=== PATIENT | male | born 1965 | race Caucasian/White ===

== ENCOUNTER → 2019-01-06 | Outpatient (CLI) | payer OTHER ==
[~2019-01-06] MED LIST: FLOM0.4C39 PO; LIDOCAINE 1% MDV 20ML VIAL As Ordered ONE; LISI-538 PO; MIDAZOLAM INJ 2 MG/2 ML VIAL (J2250) As Ordered ONE; ONDA8TAB7 PO; PROC10TA4 PO; ceFAZolin 1GM INJ (J0690 PER 500MG) As Ordered ONE; diphenhydrAMINE INJ 50MG/ML VIAL (J1200) As Ordered ONE; fentaNYL 100 MCG/2 ML INJECTION (J3010) As Ordered ONE
--- NOTE | 2019-01-06 13:38 | POST-OPPD ---
Postoperative Procedure Note Date Of Procedure: Jan 06, 2019 Time Of Procedure: 13:35 PREOPERATIVE DIAGNOSIS: rectal ca POSTOPERATIVE DIAGNOSIS: rectal ca FINDINGS: normal right IJ PROCEDURE: right side sport SURGEON: maya ANESTHESIA: moderate sedation ESTIMATED BLOOD LOSS: < 5 ml COMPLICATIONS: none POSTOPERATIVE CONDITION: stable ALEXANDRIA PEREZ MD Jan 06, 2019 13:38
--- NOTE | 2019-01-06 13:44 | REP ---
IR Ultrasound and fluoroscopy-guided port placement. IR Ultrasound of the neck. IR Moderate sedation. Clinical information: Rectal cancer. Physician: Dr. Villegas. Procedure: The patient was advised of the benefits, risks, and alternatives of the procedure and informed consent was obtained. A time-out was performed with verification of the patient's name, MRN, site of procedure and type of procedure to be performed. The patient was positioned in the supine position on the angiographic table. The site was prepped and draped in the usual sterile fashion. Moderate sedation was performed by the physician including the presence of an independent trained observer who assisted and monitored the patient's level of consciousness and physiologic status. Following the administration of fentanyl and versed, the physician spent 45 minutes of continuous face to face time with the patient. Ultrasound of the neck reveals a patent and compressible right internal jugular vein. A csw radiograph reveals no gross abnormality. The neck and anterior chest wall were anesthetized with lidocaine. The right internal jugular vein was accessed using a microintroducer needle by a lateral approach. An 018 wire was advanced into the superior vena cava, the needle was removed and a microsheath was placed. An Amplatz wire was then passed into the inferior vena cava. An incision at the internal jugular vein access site and anterior chest wall were made using a scalpel. An incision was made at the anterior chest wall. A small pocket was created using a combination of blunt and sharp dissection. A tunneling device was then used to pass the catheter from the pocket to the neck puncture site. An 8-Sw[employer] smart power port was then positioned in the pocket. The catheter was then measured and cut. The introducer sheath was exchanged for a peel-away sheath. The catheter was passed through the peel-away sheath into the internal jugular vein and the peel-away sheath was removed. The port tip was positioned at the cavo atrial junction. The port was then accessed with a Jorgensen needle. The port flushes and aspirates well. The puncture site in the neck was closed. The chest wall incision was then closed with 2-0 Vicryl and 4-0 Monocryl. Glue and Steri-Strips were applied. A sterile dressing was then applied. The patient tolerated the procedure well and was returned to the PRU in stable condition. Estimated blood loss: <5 ml. Complications: None. Conclusion: 1. Successful placement of an 8-Sw[employer] smart power port via the right internal jugular vein. The port is ready for immediate use. 2. Patient to follow up in IR clinic in 2 weeks. Thank you for this referral. Electronically Signed by Daniela Villegas MD 01/06/2019 01:43 P
[2019-01-06 15:43] VITALS: BP 117/63
== END ==
LOC: M IRPRO 11:40
PROVIDERS: ATTEND Internal Medicine Medical Oncology
DX: C20 Malignant neoplasm of rectum (principal)
CPT/HCPCS: 36571; 99152; 99153; C1769; C1788; C1894; J0690; J1200; J2250; J3010

== ENCOUNTER → 2019-06-02 | Outpatient (CLI) | payer OTHER ==
[~2019-06-02] MED LIST changes: +ALL10TAB2 PO; +B-12100021 PO; +ESSETAB4 PO; -LIDOCAINE 1% MDV 20ML VIAL As Ordered ONE; +LOMO2.5T PO; -MIDAZOLAM INJ 2 MG/2 ML VIAL (J2250) As Ordered ONE; +NAPR220C23 PO; +ONDA8TAB10 PO; -ONDA8TAB7 PO; -ceFAZolin 1GM INJ (J0690 PER 500MG) As Ordered ONE; -diphenhydrAMINE INJ 50MG/ML VIAL (J1200) As Ordered ONE; -fentaNYL 100 MCG/2 ML INJECTION (J3010) As Ordered ONE
--- NOTE | 2019-06-03 08:23 | RADONC ---
RADIATION ONCOLOGY CONSULTATION NOTE DATE: 06/02/2019 CHART NUMBER: [id number] DIAGNOSIS: Rectal cancer. STAGE: IIIB, T2, N2a, M0. ECOG PERFORMANCE STATUS: 0 CONSULTATION NOTE Mr. Tejada is a 53-year-old white male with the diagnosis of what appears to be a stage IIIB, [id number] moderately differentiated adenocarcinoma of the rectum who is presenting to us today status post low anterior resection and adjuvant chemotherapy consisting of FOLFOX for discussion of postoperative radiation therapy in attempt to increase the likelihood of local control. HISTORY OF PRESENT ILLNESS: The patient was in his usual state of health until spring when he began developing some rectal bleeding. A colonoscopy was undertaken on 08/24/2018 and the patient was found to have a low rectal mass. Biopsy was undertaken and pathology revealed a moderately differentiated adenocarcinoma. The patient underwent an MRI of the abdomen and pelvis which showed a 6 cm long mid and low rectal carcinoma. The tumor extended from the retroperitoneal reflection down to the top of the anal sphincter. There was no sphincter involvement. There was no evidence of extension beyond the rectal wall. There was no evidence of lymphadenopathy. CT scans of the chest, abdomen and pelvis were done on 08/28/2018 and were negative for metastatic disease. Surgery was undertaken on 10/07/2018 consisting of low anterior resection. Pathology revealed a 2.8 cm x 2 cm x 0.5 cm moderately differentiated adenocarcinoma. The tumor invaded into the muscularis propria but not through it. A total of 29 lymph nodes were sampled, 4 of which were positive for metastatic adenocarcinoma. Of note, each of those positive nodes had tumor diffusely involving the node and invading into the perinodal fat. The margins of resection showed tumor abutting and extending to the distal inked stapled margin. However, no definitive tumor was seen in the anastomotic rings. Both of the anastomotic rings were benign and no invasive carcinoma was seen within them. However, a detached microscopic foci of tumor was seen at the edge of one of the rings near the submucosal vascular tissue. The patient was subsequently seen by his medical oncologist, Dr. Coello, and initiated systemic therapy with FOLFOX. He is now being referred to us to discuss the possibility of postoperative radiation therapy in an attempt to increase the likelihood of achieving local control in this locally advanced rectal cancer patient. PAST MEDICAL HISTORY: The patient's past medical history is positive for arthritis and hypertension. In addition, the patient had right knee surgery and left arm soft tissue surgery. He had a ventral hernia repair. ALLERGIES: The patient is allergic to PORT LIONS BASED CHEMOTHERAPY. He is also allergic to IV CONTRAST. SOCIAL HISTORY: The patient does not smoke cigarettes. He drinks alcohol socially. FAMILY HISTORY: The patient's family history is noncontributory. REVIEW OF SYSTEMS: The patient's review of systems is positive for some fatigue, energy and weakness, as well as some headaches and some diarrhea and constipation alternating. It is otherwise noncontributory. He denies nausea, vomiting, fevers, chills, night sweats, diplopia, anorexia or weight loss, bone pain, urinary problems or neurological issues. PHYSICAL EXAMINATION: The patient is a well-developed, well-nourished male in no acute distress. HEENT exam is normocephalic, atraumatic. Extraocular movements are intact. There is no palpable cervical, supraclavicular, infraclavicular, axillary, or inguinal lymphadenopathy present. Lungs are clear to auscultation and percussion. Heart has a regular rate and rhythm. Abdomen is benign with no hepatosplenomegaly, masses, or tenderness. Rectal examination was deferred. Skeletal examination reveals no tenderness to pressure or percussion of the bony skeleton. Extremities reveal no clubbing, cyanosis, or edema. Neurologic exam is grossly intact as is the remainder of the physical examination. ASSESSMENT: I had a very lengthy discussion with this patient. We went into detail with not only the NCCN guidelines for his stage IIIB locally advanced rectal cancer, but I also xeroxed a portion of the chapter on postoperative radiation therapy discussing the local control rates and cure rates out of the textbook [employer]ad[employer]. We discussed the statistics of local control with radiation versus without. We discussed the statistics of overall survival with radiation and without. Within the portion of the chapter I copied for him, there were statistics from multiple cancer centers and clinical trials. In addition, I made the patient a copy of his path report and went through each line [id number] describing the risks of recurrence caused by those steps. We specifically spoke of the positive lymph nodes with extranodal extension bursting into the perirectal fat. We also spoke of the questionable margin which was read as abutting and extending to the distal inked/stable margin. We discussed the theories behind increasing risk for local recurrence. We discussed the way radiation effects tumor cells. The patient continues to be very hesitant to even consider radiation. We discussed the possibility for an outside opinion as well. I made clear to the patient that considering his locally advanced disease with these four nodes with extranodal extension into the perirectal fat as well as the questionable surgical margin approaching the inked and stapled area. I would recommend radiation. I think the studies have shown an increase in local control as well as an increase in survival for postoperative treatment for this disease. The patient appears to be leaning to observation. We discussed the fact that this is purely a preventative treatment in as much as all known disease has been resected. Indeed, I cannot give this patient a guarantee that this radiation will be absolutely necessary and that there is disease there to kill. It is of course possible that he will do just fine without any treatment. I made clear that we are dealing with statistics and odds here. I stressed that he is relatively young and in good shape and should be able to handle this radiation. I explained the difficulties of treatment should the tumor come back even if caught early. In summary, I have given the patient copies of the NCCN guidelines as well as a list of web sites, such as the National Cancer [place] and the [place] [employer] to review on his own. In addition, I have given the patient my cell phone number as well as the office number if he should have any further questions. I also gave him a portion of the chapter from one of our major textbooks, Yadira, on colorectal cancer to study for himself. I have given him a copy of this path report highlighting any issues of concern so that he can take that with him when he returns to Dr. Richey and to discuss this as well. The patient has further chemotherapy and does not have the make this decision until a few weeks from now. We are available to him should he want radiation in the future. In light of his hesitancy, however at this time to undergo radiation, I have not set him up for any followup appointments here. If he wishes radiation he will call us or we can have him referred back by his surgeon Dr. Tim Richey MD or his medical oncologist, Dr. Narda Coello MD. The patient is aware that I am recommending post operative RT. The patient is also aware that I will be off on vacation for the next 2 weeks and his decision should be made by the time I return so we could begin working on his treatment planning if he so decides. cc: MD Tim Jon MD MTDD
== END ==
LOC: M ONCR 12:38
PROVIDERS: ATTEND Radiology Radiation Oncology
DX: C20 Malignant neoplasm of rectum (principal)

== ENCOUNTER → 2019-11-15 | Outpatient (CLI) | payer OTHER ==
[~2019-11-15] MED LIST changes: +FULP6INJ SC; +GASTROGRAFIN SOLUTION 30ML (Q9963) As Ordered ONE; +ISOVUE-370 76% 100ML VIAL As Ordered ONE; +OXYC10TA12 PO; +PRED50TA PO; +WHEAOIL4 PO; +ZOFR8TAB24 PO; +diphenhydrAMINE 25MG CAP PO ONE
--- NOTE | 2019-11-15 16:55 | REP ---
Clinical: History of rectal carcinoma. Technique: Axial contrast enhanced images from the thoracic inlet to the upper abdomen coronal and sagittal re-formations (followed by CT of the abdomen and pelvis) using 100 ml Isovue 370 intravenous contrast material. Comparison: 08/28/2018. Findings: Mediastinum demonstrates normal thoracic aorta, pulmonary vasculature, and heart/pericardium. No adenopathy. No pericardial effusion. The bilateral lung graham are well-aerated, relatively symmetric and essentially clear. The no consolidation, significant nodule, or mass lesion. No pleural effusion. No pneumothorax. Tracheobronchial tree is patent. Surrounding musculoskeletal structures are intact without acute osseous abnormality. [id number] identified with tip in the SVC. Impression: No acute mediastinal or pleuroparenchymal process. Specifically, no evidence for metastatic disease. Electronically Signed by Edgard Kaba MD 11/15/2019 04:47 P
--- NOTE | 2019-11-15 17:03 | REP ---
Clinical: Rectal carcinoma. Technique: Axial contrast enhanced images from the lung bases to the pubic symphysis using oral (per protocol) and 100 ml Isovue 370 intravenous contrast material with coronal and sagittal re-formations. Delayed images of the abdomen obtained. Comparison: 08/28/2018 (presurgical outside CT). Findings: Diffuse hepatosteatosis noted without focal hepatic lesion. Spleen, pancreas, gallbladder, bilateral adrenal glands and kidneys are normal. The enteric system is without obstruction or acute inflammatory process. Evidence for prior partial rectal resection and reanastomosis. Surrounding fat stranding and small lymph nodes in the surrounding perirectal space are nonspecific. No associated fluid collection. Further evaluation of the pelvis demonstrates normal bladder and mild prostatomegaly. No ascites. No free air. No significant retroperitoneal or intraperitoneal adenopathy. Abdominal aorta and vasculature without aneurysm or dissection. Surrounding musculoskeletal structures are intact without acute osseous abnormality. Impression: 1. Evidence for prior partial rectal resection with moderate surrounding fat stranding and small lymph nodes nonspecific in appearance and without significant prior examinations for comparison. Short-term follow-up evaluation may be warranted. 2. No further acute process and no definite evidence for recurrence or metastatic disease noted. 3. Prostatomegaly. 4. Hepatosteatosis. Electronically Signed by Edgard Kaba MD 11/15/2019 04:55 P
== END ==
LOC: M RAD 14:24
PROVIDERS: ATTEND Internal Medicine Medical Oncology
DX: Z85.048 Personal history of other malignant neoplasm of rectum, rectosigmoid junction, and anus (principal); N40.0 Benign prostatic hyperplasia without lower urinary tract symptoms
CPT/HCPCS: 71260; 74177; Q9963; Q9967

== ENCOUNTER → 2020-02-15 | Outpatient (CLI) | payer OTHER ==
[~2020-02-15] MED LIST changes: -FULP6INJ SC; -GASTROGRAFIN SOLUTION 30ML (Q9963) As Ordered ONE; -ISOVUE-370 76% 100ML VIAL As Ordered ONE; -diphenhydrAMINE 25MG CAP PO ONE
--- NOTE | 2020-02-15 12:36 | REPVR ---
PROCEDURE INFORMATION: Exam: CT Abdomen And Pelvis Without Contrast Exam date and time: 02/15/2020 12:03 PM Age: 54 years old Clinical indication: Condition or disease; Other: History of colon cancer TECHNIQUE: Imaging protocol: Computed tomography of the abdomen and pelvis without contrast. Radiation optimization: All CT scans at this facility use at least one of these dose optimization techniques: automated exposure control; mA and/or kV adjustment per patient size (includes targeted exams where dose is matched to clinical indication); or iterative reconstruction. COMPARISON: CT ABD PELVIS WITH CONTRAST 11/15/2019 4:14 PM FINDINGS: Limitations: Lack of intravenous contrast material limits evaluation of the vascular and visceral structures. Lungs: Four new noncalcified nodules in the lung bases. These measure up to 5 mm, and are suggestive of metastases. Liver: Innumerable hypodense hepatic lesions, which appear new since the prior CT. Largest lesion measures approximately 2.9 cm x 2.9 cm, straddling the right and left hepatic lobes. Second largest lesion measures 2.9 cm x 2.7 cm, in the left hepatic lobe. Gallbladder and bile ducts: Normal. No calcified stones. No ductal dilation. Pancreas: Normal. No ductal dilation. Spleen: The spleen is upper normal in size. Adrenals: Normal. No mass. Kidneys and ureters: Normal. No hydronephrosis. Stomach and bowel: Suture material associated with the sigmoid colon. Suture material associated with the small bowel. No bowel obstruction. Appendix: No evidence of appendicitis. Intraperitoneal space: Unremarkable. No free air. No significant fluid collection. Vasculature: Mild atherosclerotic vascular calcifications. Lymph nodes: Enlarged periportal lymph nodes, measuring up to 19 mm in short axis dimension, significantly increased in size since prior. Mildly prominent retroperitoneal lymph nodes, measuring up to 14 mm in short axis dimension, increased in size. Prominent left iliac chain lymph nodes, measuring up to 11 mm, increased in size. Urinary bladder: Unremarkable as visualized. Reproductive: Unremarkable as visualized. Bones/joints: Chronic bilateral L5 pars defects. Soft tissues: Diastasis of the rectus abdominus muscles. Small bowel loops extend into the diastasis. Other findings: Nodular soft tissue density perirectal metastatic implants versus lymph nodes, measuring up to 26 mm x 20 mm, significantly increased in size. Amorphous soft tissue density in the presacral region, increased since the prior CT, likely due to metastases. IMPRESSION: 1. Innumerable new hepatic metastases. 2. New pulmonary metastases. 3. Periportal, retroperitoneal, perirectal, and left iliac lymphadenopathy, significantly progressed, and likely metastatic. 4. Perirectal and presacral metastatic implants, significantly progressed. Electronically signed by: Jaz Kinsey On 02/15/2020 12:36:49 PM
== END ==
LOC: M RAD 11:49
PROVIDERS: ATTEND Specialist
DX: C78.7 Secondary malignant neoplasm of liver and intrahepatic bile duct (principal); C78.00 Secondary malignant neoplasm of unspecified lung; R59.0 Localized enlarged lymph nodes; Z85.038 Personal history of other malignant neoplasm of large intestine

== ENCOUNTER → 2020-02-22 | Outpatient (CLI) | payer OTHER ==
[~2020-02-22] MED LIST changes: +LIDOCAINE 1% MDV 20ML VIAL As Ordered ONE; +SODIUM BICARBONATE 8.4% INJ 50MEQ 50 ML VIAL As Ordered ONE; -WHEAOIL4 PO
[2020-02-22 11:25] VITALS: BP 146/85
--- NOTE | 2020-02-22 17:48 | REP ---
INDICATION: NEW LIVER MASSES. COMPARISON: None. TECHNIQUE: The procedure was performed by LIAM Koenig, under the direct supervision of Dr. Adrian. The risks and benefits of the procedure were explained to the patient and an informed consent was obtained both verbally and written. Directly prior to the start of the procedure a formal time-out was completed in the procedure room. FINDINGS: Using ultrasound guidance a hypoechoic mass in the left lobe of the liver was localized. The skin was prepped and draped in a sterile fashion. Twenty mL of buffered lidocaine was used as a local anesthetic. Using ultrasound guidance a 19/20 gauge coaxial needle biopsy system was inserted and advanced into the left lobe of liver mass. Six core biopsy specimens were obtained and sent to the laboratory for testing. The patient tolerated the procedure well and there were no immediate complications. After the appropriate amount of monitored convalescence the patient was discharged from the department. IMPRESSION: 1. Successful ultrasound-guided targeted left lobe liver biopsy. <Electronically signed by Shivani Mercado > 02/22/20 [id number] <Electronically signed by Huy Adrian > 02/22/20 [id number]
== END ==
LOC: M IRPRO 08:00
PROVIDERS: ATTEND Internal Medicine Hematology
DX: C78.7 Secondary malignant neoplasm of liver and intrahepatic bile duct (principal); C20 Malignant neoplasm of rectum

== ENCOUNTER → 2020-03-06 | Outpatient (CLI) | payer OTHER ==
[~2020-03-06] MED LIST changes: +FULP6INJ SC; -LIDOCAINE 1% MDV 20ML VIAL As Ordered ONE; -SODIUM BICARBONATE 8.4% INJ 50MEQ 50 ML VIAL As Ordered ONE; +WHEAOIL4 PO
--- NOTE | 2020-03-06 16:44 | REP ---
INDICATION: RESTAGING RECTAL CA. COMPARISON: Comparison is made with CT abdomen pelvis February 15, [address] chest November 15, 2019. No comparison PET-CT.. TECHNIQUE: Forty-five minutes following the intravenous injection of a 8.16 mCi dose of F-18 FDG, three-dimensional PET scintigraphy is acquired from the skull base to the proximal thighs. Triplanar noncontrast CT scanning is acquired through the same anatomic range for attenuation correction, and image registration with scan parameters optimized to minimize radiation exposure to the patient. PET scintigraphy and CT datasets were fused and displayed on a workstation with multiplanar and projection display capability. FINDINGS: Head and neck soft tissues are unremarkable. There is no abnormal hypermetabolic uptake within the thorax. There is some normal variant skeletal muscle uptake about the left shoulder and low in the left posterior neck musculature. A right-sided Moanao-F-Kant catheter is noted. There are multiple low-density liver hypermetabolic lesions in the liver consistent with multiple hepatic metastases. These range in uptake from maximum SUV value of 5.8 to 7.3. There is hypermetabolic CT portocaval and celiac axis adenopathy with maximum standard uptake value ranging from 5.7 to 7.4. There is a hypermetabolic aortocaval lymph node with maximum SUV value 5.99. There is a left common iliac lymph node which is barely hypermetabolic and under a cm in size, maximum SUV value 2.94. There is a right external iliac karen focus which is hypermetabolic adjacent to the lateral wall urinary bladder. Maximum standard uptake value reading is 8.14. There is right inguinal lymph node which is mildly hypermetabolic under a cm in size, maximum SUV value 4.9. There is extensive nodular disease about the low anterior resection in the ischial rectal fat and presacral soft tissues. This is hypermetabolic tissue. Maximum standard uptake value in this ischial rectal and perirectal disease is up to 12.37. Lastly there are hypermetabolic foci in the mid sacrum, right posterior acetabulum, right distal sacrum which are suspicious for a skeletal metastatic disease. Maximum standard uptake value in the mid sacral lesion is 8.12. The right distal sacrum has maximum SUV value 8.5 and the right acetabular lesion is hypermetabolic, 7.44. IMPRESSION: There is fairly extensive nodular disease in the region of the rectal anastomosis and ischial rectal and presacral soft tissues. Hypermetabolic karen, skeletal, and hepatic metastatic disease is seen as noted above. <Electronically signed by Elder Vasquez > 03/06/20 [id number]
== END ==
LOC: M PLARAD 08:11
PROVIDERS: ATTEND Internal Medicine Hematology
DX: C20 Malignant neoplasm of rectum (principal)
CPT/HCPCS: 78815; A9552

== ENCOUNTER → 2020-03-09 | Outpatient (CLI) | payer OTHER ==
--- NOTE | 2020-03-09 10:50 | RADONC ---
Radiation Oncology Hx/FUP Radiation Oncology Hx/FUP Date of Service: Mar 09, 2020 Pt Identifier Josh Tejada is a 54 year old male seen for a followup visit today at the department of radiation oncology for a history of stage IV rectal cancer, originally [id number], s/p adjuvant chemotherapy, he declined adjuvant RT. He recurred extensively in at the anastomosis and in pelvic bones, liver and lung. He is currently undergoing FOLFIRI chemotherapy s/p cycle 1 completed 03/09/20. He is seen for consideration of palliative RT to address his rectal bleeding, an d pelvic pain. Diagnosis/Treatment History Oncologic History Metastatic rectal cancer with karen, skeletal and hepatic metastatic disease and possible lung metastases. Oncology diagnostic and treatment history: 1. Rectal mass biopsy 08/24/2018 showing adenocarcinoma, low to moderate grade. -Rectal resection 10/07/2018 for a pT2N2a moderately differentiated adenocarcinoma with invasion into muscularis propria. 08/24 lymph nodes positive. -FOLFOX chemotherapy 01/11/2019 to 06/14/2019. Developed allergic reaction to oxaliplatin cycle 10. -Declined radiation therapy. 2. Increased tumor marker 01/2020, CT abdomen and pelvis 02/15/2020 showing innumerable new hepatic metastases, new pulmonary metastases, periportal, retroperitoneal, perirectal, and left iliac lymphadenopathy, significantly progressed and perirectal and presacral metastatic implants, sig nificantly progressed. -Liver biopsy 02/22/2020 showing metastatic adenocarcinoma compatible with metastatic colorectal adenocarcinoma, CK20, CD X2 and CK 7 positive. No deficiency of the mismatch repair protein identified. -PET CT scan 03/06/2020 showing fairly extensive nodular disease in the region of the rectal anastomosis and ischial rectal and presacral soft tissues and hype rmetabolic karen, skeletal, and hepatic metastatic disease. Relevant data: 09/15/19 CEA 0.9 02/14/20 CEA 57.8 03/06/20 PET-CT FINDINGS: Head and neck soft tissues are unremarkable. There is no abnormal hypermetabolic uptake within the thorax. There is some normal variant skeletal muscle uptake about the left shoulder and low in the left posterior neck musculature. A right-sided [id number]-A-[id number] catheter is noted. There are multiple low-density liver hypermetabolic lesions in the liver consistent with multiple hepatic metastases. These range in uptake from maximum SUV value of 5.8 to 7.3. There is hypermetabolic CT portocaval and celiac axis adenopathy with maximum standard uptake value ranging from 5.7 to 7.4. There is a hypermetabolic aortocaval lymph node with maximum SUV value 5.99. There is a left common iliac lymph node which is barely hypermetabolic and under a cm in size, maximum SUV value 2.94. There is a right external iliac karen focus which is hypermetabolic adjacent to the lateral wall urinary bladder. Maximum standard uptake value reading is 8.14. There is right inguinal lymph node which is mildly hypermetabolic under a cm in size, maximum SUV value 4.9. There is extensive nodular disease about the low anterior resection in the ischial rectal fat and presacral soft tissues. This is hypermetabolic tissue. Maximum standard uptake value in this ischial rectal and perirectal disease is up to 12.37. Lastly there are hypermetabolic foci in the mid sacrum, right posterior acetabulum, right distal sacrum which are suspicious for a skeletal metastatic disease. Maximum standard uptake value in the mid sacral lesion is 8.12. The right distal sacrum has maximum SUV value 8.5 and the right acetabular lesion is hypermetabolic, 7.44. IMPRESSION: There is fairly extensive nodular disease in the region of the rectal anastomosis and ischial rectal and presacral soft tissues. Hypermetabolic karen, skeletal, and hepatic metastatic disease is seen as noted abov Interval History Has persistent pelvic pain, at rest, with urination and defecation. Taking oxycodone PRN for this with positive effect. Notes decreasing BRBPR with start of chemotherapy, was previously copious at times with BM. He has lost 20 lbs this month. Appetite diminished. Feels fatigued. Strives for minimal appointments/meds. Receptive to RT at this time. Current Therapy FOLFIRI s/p cycle 1 Stage Stage IVB [id number] rectal adenocarcinoma originally [id number] Social History: Never smoker Non-drinker Allergies / Meds Allergies: Coded Allergies: Contrast Media (Verified Allergy, Intermediate, HIVES, 11/15/19) Home Meds Active Scripts Oxycodone HCl (Oxycodone HCl) 10 Mg Tablet, 1 TAB PO QIDP PRN for pain MDD 4 Tablet(s) for 30 Days, #60 TAB Take 10 mg po q 4 hours prn cancer pain Prov:SHAZIA HOSKINS MD 03/02/20 Tamsulosin HCl (Flomax) 0.4 Mg Capsule, 0.4 MG PO BID for 30 Days, #60 CAP Prov:SHAZIA HOSKINS MD 03/02/20 Prochlorperazine Maleate (Prochlorperazine Maleate) 10 Mg Tablet, 10 MG PO Q6H for nausea MDD 40 mg for 15 Days, #60 TAB Take 1 tablet po q 6 hours prn breakthru nausea despite Zofran Prov:FELICIA HAYES MD 02/14/20 Ondansetron HCl (Ondansetron HCl) 8 Mg Tablet, 8 MG PO Q6H PRN for NAUSEA OR VOMITING, #30 TAB 3 Refills Prov:Narda Coello MD 01/11/19 Reported Medications Wheat Germ Oil (Wheat Germ Oil) 1 Ml Oil, 1 OIL PO, OIL 03/07/20 Multivitamin with Folic Acid (One Daily Multivitamin Tablet) 400 Mcg Tablet, 1 TAB PO DAILY for 30 Days, #30 TAB 04/05/19 Cetirizine HCl (All Day Allergy) 10 Mg Tablet, 10 MG PO DAILY for allergy symptoms for 30 Days, #30 TAB 03/22/19 Lisinopril (Lisinopril) 20 Mg Tablet, 20 MG PO DAILY 11/18/18 Discontinued Reported Medications Naproxen Sodium (Naproxen Sodium) 220 Mg Capsule, 2 CAP PO BID for 7 Days, #28 CAP 06/02/19 Discontinued Scripts Prochlorperazine Maleate (Prochlorperazine Maleate) 10 Mg Tablet, 10 MG PO Q8HP PRN for NAUSEA OR VOMITING, #30 TAB 3 Refills Prov:Narda Coello MD 01/11/19 Review of Systems Review of Systems Constitutional: Reports: Weakness, Fatigue, Weight Loss; Denies: Chills, Fever, Night Sweats, Normal appetite Eyes: Denies: Pain, Vision change HEENT: Denies: Head Aches, Sore Throat Skin: Denies: Rash, Lesions Pulmonary: Denies: Dyspnea, Cough, Pleuritic Chest Pain Cardiovascular: Denies: Chest Pain, Palpitations Gastrointestinal: Reports: Nausea, Abdominal Pain, Constipation, Hematochezia; Denies: Vomiting, Melena Genitourinary: Reports: Dysuria, Hematuria, Retention; Denies: Incontinence Hematologic: Denies: Bruising, Bleeding Excessively Endocrine: Denies: Polyphagia, Heat Intolerance, Cold Intolerance Musculoskeletal: Reports: Other (Pelvic pain right hip); Denies: Neck pain, Shoulder pain Neurological: Denies: Weakness, Numbness, Incoordination, Confusion Psych: Reports: Mood Normal; Denies: Anxiety Physical Examination Vital Signs Ht 67" Wt 188lb BMI 29 T 97.5 P 85 RR 18 BP 108/70 O2 95% Pain 5 Fatigue 2 General Exam: Positive: Alert, Cooperative; Negative: No Acute Distress Eye Exam: Positive: PERRLA, EOMI ENT EXAM: Positive: Atraumatic, Pharynx Normal Neck Exam: Positive: Supple Chest Exam: Positive: Clear to auscultation, Normal air movement Heart Exam: Positive: Rate Normal, Regular Rhythm Abdomen Exam: Positive: Normal bowel sounds, Soft, Tenderness Extremity Exam: Negative: Edema Skin Exam: Positive: Nl turgor and temperature Neuro Exam: Positive: Normal Speech, Cranial Nerves 3-12 NL Psych Exam: Positive: Mental status NL, Mood NL Diagnostic and Laboratory Diagnostic Review Radiologic images, relevant labs and pathology reports were personally reviewed and discussed with Mr. Tejada. Assessment and Plan Impression Assessment Mr. Tejada is a 54 year old male with a history of stage IV rectal cancer, originally [id number], s/p adjuvant chemotherapy, he declined adjuvant RT. He r ecurred extensively in at the anastomosis and in pelvic bones, liver and lung. He is currently undergoing FOLFIRI chemotherapy s/p cycle 1 completed 03/09/20. He is seen for consideration of palliative RT to address his rectal bleeding, and pelvic pain. He is very symptomatic from his extensive locoregional recurrence. He would certainly benefit from palliative RT. I discussed proceeding with short course RT 25 Gy in 5 fractions with 3DCRT and prone positioning which will address the large anastomotic recurrence as well as the bony metastases in the pelvis especially the right acetabulum lesion which is likely the source of his right hip pain. He requested that we work around his chemo schedule to minimize appointments. He is due next the week of 03/20/20 therefore we will do his simulation then. Treatment can be scheduled between cycles. We reviewed the side effects of treatment including fatigue, diarrhea and nausea. The benefits would be decreased pain and bleeding per rectum. Shrinkage of the anastomotic mass would also likely improve his urinary symptoms as well. He, somewhat hesitantly, agrees to proceed with treatment. Performance Status ECOG 1 Plan Palliative short course RT to the pelvis 25 Gy in 5 fractions, will treat prone Simulation week of 03/20/20 Mr. Tejada was encouraged to call with questions or concerns in the interim period. SANTANA LAROSE MD Mar 09, 2020 10:50
== END ==
LOC: M ONCR 09:48
PROVIDERS: ATTEND General Practice
DX: C20 Malignant neoplasm of rectum (principal)

== ENCOUNTER → 2020-04-25 | Outpatient (CLI) | payer OTHER ==
[~2020-04-25] MED LIST changes: +CLAR10CA3 PO; +DIPH50CA PO; +ISOVUE-370 76% 100ML VIAL As Ordered ONE; +LOPE-39 PO; +MORP15TASA PO; +READI-CAT 2 As Ordered ONE; +SENN-80 PO; +SENO8.6T10 PO
--- NOTE | 2020-04-25 16:22 | REP ---
INDICATION: RECTAL CA. COMPARISON: Comparison chest CT studies are dated November 15, 2019 and August 28, 2018.. TECHNIQUE: 100 mL of intravenous Isovue 370 is administered. Helical scanning is acquired and 3 mm axial images are re-formatted. Coronal and sagittal MPR images are generated. The patient had been given a premedication for his history of urticarial contrast reaction allergy. FINDINGS: There is a right-sided [id number]. There is no evidence of hilar or mediastinal mass or adenopathy. There is no evidence of pleural or pericardial effusion. On lung window settings, there is a 4 mm nodule in the right middle lobe just above the diaphragm which was not previously observed. There are 2 new 5 mm noncalcified pulmonary nodule in the left lower lobe. These are suspicious for pulmonary metastatic disease. There is a granulomatous calcification in the right upper lobe and another in the left upper lobe which are unchanged. No bony destructive lesion is seen. IMPRESSION: There are 3 new subcentimeter noncalcified pulmonary nodules suspicious for early pulmonary metastatic disease. <Electronically signed by Elder Vasquez > 04/25/20 [id number]
--- NOTE | 2020-04-25 16:31 | REP ---
INDICATION: RECTAL CA. COMPARISON: 02/15/2020, 11/15/2019 TECHNIQUE: Axial contrast-enhanced images from the lung bases to the pubic symphysis using 100 cc Isovue 370 intravenous contrast material. Delayed images of the abdomen with coronal and sagittal reformations obtained. This CT examination was performed using the following dose reduction techniques: Automated exposure control, adjustment of mA and/or kv according to the patient's size, and the use of iterative reconstruction technique. FINDINGS: Liver demonstrates innumerable diffuse hepatic metastases increased from 02/15/2020 and new as compared with 11/15/2019. Periportal and upper abdominal adenopathy is again identified with lymph nodes measuring up to 2.4 cm diameter just above the head of the pancreas which can reflect new findings as compared to 11/15/2019 but appear relatively similar to 02/15/2020 examination. Spleen, pancreas, gallbladder, bilateral adrenal glands and left kidney are normal. The right kidney demonstrates new hydroureteronephrosis which appears to be secondary to scarring at the distal aspect of the ureter within the pelvis appearing tethered to the ill-defined and irregular masslike appearance at the level of the rectosigmoid suture line which includes a large amount of extraluminal gas in the adjacent perirectal and ischiorectal fat extending into the medial right gluteal fat (axial images 120-192). Are considerably irregular and increased as compared to prior examination and consistent with focal recurrence and infiltrating metastasis to the surrounding soft tissues with likely focal perforation and/or dehiscence at the previous site of resection. Remainder of the small and large bowel is without obstruction or further acute process. Few scattered retroperitoneal lymph nodes are identified measuring up to 9 mm which are nonspecific. Further evaluation of the pelvis demonstrates moderately distended bladder and relatively normal appearance of the prostate gland although outlet obstruction cannot be exclude. Osseous structures are intact and without focal abnormality. IMPRESSION: 1. Extensive ill-defined irregular soft tissue and surrounding fatty infiltration with extensive amount of extraluminal gas at the site of previous rectosigmoid resection. Significant subcutaneous gas likely related to perforation or surgical dehiscence extends into the surrounding perirectal and ischiorectal spaces and into the medial aspect of the right gluteal. Findings are consistent with recurrence/infiltrating malignancy/metastatic disease unless proven otherwise. 2. Extensive hepatic metastases with lymph nodes at the level of the rudi hepatis. 3. New right-sided hydroureteronephrosis secondary to mechanical obstruction from tethering and scarring at the above-mentioned irregular changes within lower pelvis. <Electronically signed by Edgard Kaba > 04/25/20 [id number]
== END ==
LOC: M RAD 13:24
PROVIDERS: ATTEND Internal Medicine Medical Oncology
DX: C20 Malignant neoplasm of rectum (principal); C78.7 Secondary malignant neoplasm of liver and intrahepatic bile duct; C77.9 Secondary and unspecified malignant neoplasm of lymph node, unspecified
CPT/HCPCS: 71260; 74177; Q9967

== ENCOUNTER → 2020-05-23 | Outpatient (REF) | payer OTHER ==
[~2020-05-23] MED LIST changes: +AUGM500T34 PO; +BRAF75CA PO; +CLEO2CRE PV; +CLIN30GE TP; +HYDR25OI TOP; -ISOVUE-370 76% 100ML VIAL As Ordered ONE; -LISI-538 PO; +LISI20TA33 PO; +MORP30TASA PO; -READI-CAT 2 As Ordered ONE
== END ==
LOC: M SMT 17:06
PROVIDERS: ATTEND Urology
DX: N13.5 Crossing vessel and stricture of ureter without hydronephrosis (principal)

== ENCOUNTER → 2020-06-13 | Outpatient (CLI) | payer OTHER ==
[~2020-06-13] MED LIST changes: +AUGM875T28 PO
--- NOTE | 2020-06-13 16:29 | REP ---
INDICATION: H/O RECTAL CA ? PELVIC ABCESS COMPARISON: Comparison pelvic CT study 04/25/2020. Comparison PET-CT March 06, 2020.. TECHNIQUE: Helical scanning is acquired in 4 mm axial images were reformatted. Coronal and sagittal MPR images were generated and reviewed. 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 Bowel gas pattern is otherwise unremarkable. On axial CT images, there is a 6 mm pulmonary nodule in the left lower lobe. There is no evidence of pleural effusion. Widespread metastatic nodules are seen throughout the mildly enlarged liver. There is a mild amount of pericardial fluid. Normal adrenal glands are seen. Stable portacaval and celiac axis lymph nodes are noted. There is an accessory splenule. Mild hydronephrosis and hydroureter persist on the right side similar to the prior study. In the interval since the prior exam, the patient is undergone diverting colostomy. The bowel gas pattern is improved. There is still a large infiltrative and or indurated process in the presacral space and perirectal soft tissues centered to the right of midline. This contains some air indicating necrosis. Its overall size is slightly decreased and there is less air and fecal material in the process. There is however evidence of bony erosive change in the anterior margin of the right mid sacrum. The 2nd sacral segment shows sclerotic metastatic changes. There appears to be partial loss of the anterior cortical margin of the 3rd and 4th sacral segments on the right side. This infiltrative process extends up from the rectal anastomosis region. Below this level, there is induration in the ischial rectal fat. This is much improved compared to its appearance on the 04/25/2020 prior study. There is no yamile fluid collection. There are bilateral pars defects at L5 as before. IMPRESSION: Interval diverting left lower quadrant colostomy. Some improvement noted in the ischial rectal fat and right perineal process seen previously. The presacral process show some improvement as well however there is a large infiltrative mass effect containing some necrotic air bubbles in the right presacral space. This measures approximately 6 x 7 cm. There appears to be some developing cortical erosive change in the anterior surface of the sacrum. Right-sided hydronephrosis and hydroureter persist. Extensive hepatic metastatic disease is again noted. A small amount of pericardial fluid is visible today. <Electronically signed by Elder Vasquez > 06/13/20 [id number]
== END ==
LOC: M RAD 15:40
PROVIDERS: ATTEND Internal Medicine Medical Oncology
DX: C19 Malignant neoplasm of rectosigmoid junction (principal)

== ENCOUNTER 2020-08-01 13:54 | Inpatient (IN) | payer OTHER ==
[~2020-08-01] VITALS: Ht 175.3 cm; Wt 72.3 kg
[~2020-08-01 13:54] MED LIST changes: +CETI-36 PO; +DULO1CAP4 PO; +FENT1DIS14 TOP; +MORP1CAP46 PO
--- NOTE | 2020-08-01 14:46 | REP ---
INDICATION: CVA - Nursing interventions must not delay CT. COMPARISON: None. TECHNIQUE: Axial CT images with multiplanar reformations. FINDINGS: No acute bleed or acute large vessel territorial infarct. Ventricles, cisterns and sulci within normal limits. No mass effect or midline shift. No abnormal fluid collections. Paranasal sinuses and mastoid air cells are clear. IMPRESSION: No acute findings. <Electronically signed by Elijah Cowan > 08/01/20 [id number]
[2020-08-01] MEDS ORDERED: SODIUM CHLORIDE 0.9% INJ 10 ML SYR IV PRN (15:15)
--- NOTE | 2020-08-01 15:17 | REP ---
INDICATION: CVA. COMPARISON: CT 04/25/2020. TECHNIQUE: SINGLE PORTABLE AP VIEW OF THE CHEST WAS PERFORMED. FINDINGS: THERE IS NO ACUTE INFILTRATE OR PULMONARY EDEMA. LUNGS ARE CLEAR. HEART IS NOT SIGNIFICANTLY ENLARGED. MEDIASTINAL SILHOUETTE IS UNREMARKABLE. THE VISUALIZED OSSEOUS STRUCTURES ARE INTACT. Right central venous catheter is seen with tip in the right atrium. There is moderate elevation of the right hemidiaphragm. IMPRESSION: NO ACUTE PULMONARY DISEASE. <Electronically signed by Huy Adrian > 08/01/20 [id number]
--- NOTE | 2020-08-01 15:23 | REP ---
INDICATION: Right hip pain. COMPARISON: None. TECHNIQUE: AP view pelvis, two views right hip. FINDINGS: There is no evidence of acute fracture or dislocation. Hip joint spaces are normal. There may be a lytic lesion in the right sacrum. IMPRESSION: No evidence of acute fracture or dislocation. There may be a lytic lesion in the right sacrum. <Electronically signed by Huy Adrian > 08/01/20 [id number]
[2020-08-01 15:39] LABS: BASO # 0.1 10^3/uL (0.0-0.2); BASO % 0.4 % (0.0-1.0); EOS # 0.1 10^3/uL (0.0-0.5); EOS % 0.2 % (0.0-3.0); HEMATOCRIT 41.2 % (42.0-52.0); HEMOGLOBIN 11.9 g/dl (13.5-17.5); LYMPH % 7.2 % (24.0-44.0); MEAN CORPUSCULAR HEMOGLOBIN 21.8 pg (27.0-33.0); MEAN CORPUSCULAR HGB CONC 28.9 g/dl (32.0-36.5); MEAN CORPUSCULAR VOLUME 75.5 fl (80.0-96.0); MONO # 2.9 10^3/uL (0.0-0.8); MONO % 10.7 % (2.0-8.0); NEUTROPHILS # 21.9 10^3/uL (1.5-8.5); NEUTROPHILS % 80.3 % (36.0-66.0); PLATELET COUNT, AUTOMATED 223 10^3/uL (150-450); RED BLOOD COUNT 5.46 10^6/uL (4.30-6.10)
[2020-08-01] MEDS ORDERED: IBUPROFEN 600MG TAB PO ONE (15:40)
[2020-08-01 15:50] LABS: INR 1.44; PROTHROMBIN TIME 17.9 SECONDS (12.5-14.3)
[2020-08-01 15:51] LABS: PARTIAL THROMBOPLASTIN TIME 37.7 SECONDS (24.2-38.5)
[2020-08-01 16:10] LABS: ALBUMIN 2.5 GM/DL (3.2-5.2); ALT/SGPT 20 U/L (12-78); BILIRUBIN,DIRECT 0.6 MG/DL (0.0-0.2); BILIRUBIN,TOTAL 0.8 MG/DL (0.2-1.0); BLOOD UREA NITROGEN 11 MG/DL (7-18); CALCIUM LEVEL 9.9 MG/DL (8.5-10.1); CARBON DIOXIDE LEVEL 27 MEQ/L (21-32); CHLORIDE LEVEL 105 MEQ/L (98-107); CK-MB VALUE MASS < 1.0 NG/ML (<3.6); CPK CREATINE PHOSPHOKINASE 372 U/L (39-308); CREATININE FOR GFR 0.42 MG/DL (0.70-1.30); GLOMERULAR FILTRATION RATE > 60.0 (>56); GLUCOSE, FASTING 107 MG/DL (70-100); LIPASE 22 U/L (73-393); MB/CK RELATIVE INDEX 0.27 (< OR =4); POTASSIUM SERUM 3.8 MEQ/L (3.5-5.1); SODIUM LEVEL 137 MEQ/L (136-145); TOTAL PROTEIN 6.5 GM/DL (6.4-8.2); TROPONIN I < 0.02 NG/ML (< 0.10)
[2020-08-01 16:22] LABS: WHITE BLOOD COUNT 27.3 10^3/uL (4.0-10.0)
[2020-08-01] MEDS ORDERED: TAMS1CAP17 PO (16:22)
[2020-08-01] MEDS ORDERED: GABA-282 PO (16:22)
[2020-08-01] MEDS ORDERED: DULO30CA47 PO (16:22)
[2020-08-01] MEDS ORDERED: ERBI200I IV (16:23)
[2020-08-01 16:48] LABS: RSV AMPLIFICATION NEGATIVE (NEGATIVE)
--- NOTE | 2020-08-01 17:12 | REP ---
INDICATION: upper abd pain COMPARISON: 06/13/2020. TECHNIQUE: CT Scan of the abdomen and pelvis was performed without intravenous contrast. Sagittal and coronal reconstruction images performed. FINDINGS: Lung bases: There is a small right pleural effusion with dependent atelectatic changes. There is a 7 mm nodule along the right hemidiaphragm on image 6. There is a 3 mm nodule in the posterior costophrenic sulcus on the right on image 27. There are 2 7 mm nodule in left lower lobe, 1 on image 8 and the other on image 25. there is a small amount of pericardial fluid. Liver: The liver is enlarged with a length of approximately 22.6 cm. Multiple innumerable hypodense nodules are seen throughout the liver consistent with diffuse metastatic disease. Gallbladder: Unremarkable. Spleen: The spleen is mildly enlarged 13.8 cm in length. Adrenals: Normal. Pancreas: Grossly unremarkable.. Kidneys: No hydronephrosis or nephrolithiasis. Ureters demonstrate no dilatation or calculus. Small and large bowel: A left colostomy is again noted.. Free fluid: None. Abdominal aorta: No aneurysm. Adenopathy: There is mildly enlarged aortocaval lymph node 1.4 cm in short axis on image 71. There is an enlarged portal lymph node 1.7 cm in short axis. There are other scattered subcentimeter periaortic and iliac lymph nodes which are not significantly enlarged using CT criteria.. Appendix: Not inflamed. Pelvis: There is a large ill-defined presacral soft tissue mass, the epicenter is to the right of midline. This has increased since the prior study. It measures about 8.2 x 7.5 cm. There is invasion and destruction of the adjacent right sacrum. The superior extent is just below the aortic bifurcation. The inferior extent is at the rectal suture line. An expansile metastatic lesion is seen in the right inferior pubic ramus. Another is seen in the right ischium diffusely with a soft tissue mass displacing the right obturator internus medially. Posterior right acetabulum is significantly involved, with extensive lytic destruction. No bladder calculus seen. There is spondylolysis of L5 with very mild anterior grade 1 spondylolisthesis of L5 on S1. IMPRESSION: Small right pleural effusion with dependent atelectatic changes. Bilateral subcentimeter pulmonary nodules likely metastatic. Hepatomegaly with diffuse, multiple, innumerable metastatic nodules as seen on prior studies. Mild splenomegaly. Mild aortocaval and portal adenopathy. Large ill-defined presacral soft tissue mass to the right of midline, increased since prior exam. There is invasion and destruction of the right sacrum. There is an expansile metastatic lesion in the right inferior pubic ramus. There is extensive metastatic involvement and lytic destruction of the right ischium, predominantly involving the posterior right acetabulum. <Electronically signed by Huy Adrian > 08/01/20 [id number]
--- NOTE | 2020-08-01 18:02 | ECGEPIP ---
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
[2020-08-01] MEDS ORDERED: PIPERACILLIN/TAZOBACTAM SOD 4.5 GM in D5W MINI-BAG PLUS 50 ML IV ONE (18:10)
[2020-08-01] MEDS ORDERED: VANCOMYCIN HCL 1,000 MG, VIAL MATE ADAPTER 1 EACH in NS 250 ML IV ONE (18:10)
[2020-08-01] MEDS ORDERED: ACETAMINOPHEN TAB 650MG DOSE (2X325MG) PO PRN (18:45)
[2020-08-01] MEDS ORDERED: PROCHLORPERAZINE 5 MG TAB (S0183) PO PRN (18:50)
--- NOTE | 2020-08-01 19:16 | HPEPDOC ---
General Date of Admission 08/01/20 Date of Service: Aug 01, 2020 Chief Complaint The patient is a 54-year-old male admitted with a reason for visit of Lt Leg Pain. Source: Patient Exam Limitations: No limitations Timing/Duration: Day(s) History of Present Illness Patient is 54 years old male with past history of rectal metastatic cancer presented hospital with right leg weakness. Patient stated that for past 10 days he has been having progressively worse weakness of right leg and now he is able to walk only with her walker. Also he stated he has intermittent fever for past week. Patient denied any chills diarrhea or dysuria. Of note patient was diagnosed with rectal adenocarcinoma on 08/24/2018 Rectal resection 10/07/2018 for a pT2N2a moderately differentiated adenocarcinoma with invasion into muscularis propria. 08/24 lymph nodes positive. FOLFOX chemotherapy 01/11/2019 to 06/14/2019. He declined radiation therapy. Liver biopsy 02/22/2020 showing metastatic adenocarcinoma compatible with metastatic colorectal adenoca rcinoma. CT chest, abdomen and pelvis 04/25/2020 showed disease progression with appearance of new pulmonary nodules and increase in hepatic metastases. On second line Cetuximab/encorafenib for metastatic rectal cancer. Cetuximab started 05/22/2020. Encorafenib started 05/31/2020. Currently on Cetux imab/encorafenib. In ER patient was found to have of 27.3, fever of 101, CT showed Large ill-defined presacral soft tissue mass to the right of midline, increased since prior exam. There is invasion and destruction of the right sacrum. There is an expansile metastatic lesion in the right inferior pubic ramus. There is extensive metastatic involvement and lytic destruction of the right ischium, predominantly involving the posterior right acetabulum. Home Medications Scheduled Amoxicillin/Potassium Clav (Augmentin 500-125 Tablet) 1 Each Tablet, 1 TAB PO BID Cetuximab (Erbitux) 200 Mg/100 Ml Vial, 300 MG IV QWEEK, (Reported) Duloxetine HCl (Duloxetine HCl) 30 Mg Capsule.dr, 30 MG PO BID, (Reported) Encorafenib (Braftovi) 75 Mg Capsule, 300 MG PO DAILY Fentanyl (Fentanyl) 25 Mcg Patch.td72, 75 MCG TOP Q3D, (Reported) CURRENTLY APPLIED TO RIGHT ARM Gabapentin (Gabapentin) 300 Mg Capsule, 300 MG PO TID, (Reported) Hydrocortisone (Hydrocortisone 2.5%) 28.35 Gm Oint...g., 1 APLCT TOP BID apply to affected area(s) Morphine Sulfate (Morphine Sulfate ER) 30 Mg Tablet.er, 2 TAB PO BIDP Prochlorperazine Maleate (Prochlorperazine Maleate) 10 Mg Tablet, 10 MG PO Q6H for nausea Take 1 tablet po q 6 hours prn breakthru nausea despite Zofran Tamsulosin Hcl (Tamsulosin HCl) 0.4 Mg Capsule, 0.4 MG PO DAILY, (Reported) Scheduled PRN Oxycodone HCl (Oxycodone HCl) 10 Mg Tablet, 1 TAB PO Q4DP PRN for pain Take 10 mg po q 4 hours prn cancer pain Allergies Coded Allergies: Contrast Media (Verified Allergy, Intermediate, HIVES, 11/15/19) Past Medical History Medical History Depression, metastatic rectal cancer Surgical History Rectal resection 10/07/2018 Family History I personally reviewed family history and found not pertinent Social History * Smoker: Denies Alcohol: Denies Drugs: denies A-FIB/CHADSVASC A-FIB History Current/History of A-Fib/PAF?: No Current PO Anticoag Therapy: No Review of Systems Constitutional: Reports: Fever Eyes: Denies: Pain, Vision change ENT: Denies: Head Aches Skin: Denies: Rash Pulmonary: Denies: Dyspnea Cardiovascular: Denies: Chest Pain Gastrointestinal: Reports: Nausea Genitourinary: Denies: Dysuria Hematologic: Denies: Bruising Endocrine: Denies: Polydipsia Musculoskeletal: Reports: Leg Pain Neurological: Reports: Weakness (right leg weakness) Psych: Reports: Mood Normal Physical Examination General Exam: Positive: Alert, Cooperative Eye Exam: Positive: PERRLA ENT Exam: Positive: Atraumatic Neck Exam: Positive: Supple; Negative: JVD Chest Exam: Positive: Clear to auscultation Heart Exam: Positive: Rate Normal Telemetry: Positive: No significant arrhythmia Abdomen Exam: Positive: Normal bowel sounds Extremity Exam: Negative: Clubbing Skin Exam: Positive: Nl turgor and temperature Neuro Exam: Positive: Other (2/5 RL weakness); Negative: Normal Gait Psych Exam: Positive: Mental status NL Vital Signs Vital Signs Date Time Temp Pulse Resp B/P (MAP) Pulse Ox O2 Delivery O2 Flow Rate FiO2 08/01/20 16:55 98.3 106 92 08/01/20 16:45 132/84 (100) 08/01/20 14:18 Room Air 08/01/20 14:15 18 Laboratory Data Labs 24H Laboratory Tests 2 08/01/20 14:25: Immature Granulocyte % (Auto) 1.2, Neutrophils (%) (Auto) 80.3H, Lymphocytes (%) (Auto) 7.2L, Monocytes (%) (Auto) 10.7H, Eosinophils (%) (Auto) 0.2, Basophils (%) (Auto) 0.4, Neutrophils # (Auto) 21.9H, Lymphocytes # (Auto) 2.0, Monocytes # (Auto) 2.9H, Eosinophils # (Auto) 0.1, Basophils # (Auto) 0.1, Nucleated Red Blood Cells % (auto) 0.0, Prothrombin Time 17.9H, Prothromb Time International Ratio 1.44, Activated Partial Thromboplast Time 37.7, Anion Gap 5L, Glomerular Filtration Rate > 60.0, Calcium Level 9.9, Total Bilirubin 0.8, Direct Bilirubin 0.6H, Aspartate Amino Transf (AST/SGOT) 85H, Alanine Aminotransferase (ALT/SGPT) 20, Alkaline Phosphatase 468H, Total Creatine Kinase 372H, Creatine Kinase MB < 1.0, Creatine Kinase MB Relative Index 0.27, Troponin I < 0.02, Total Protein 6.5, Albumin 2.5L, Albumin/Globulin Ratio 0.6, Lipase 22L 08/01/20 15:49: Coronavirus (COVID-19)(PCR) NEGATIVE, Influenza Type A (RT-PCR) NEGATIVE, Influenza Type B (RT-PCR) NEGATIVE, Respiratory Syncytial Virus (PCR) NEGATIVE 08/01/20 16:50: Urine Color COMFORT, Urine Appearance CLEAR, Urine pH 6.0, Urine Specific [place] 1.019, Urine Protein 1+H, Urine Glucose (UA) NEGATIVE, Urine Ketones NEGATIVE, Urine Blood NEGATIVE, Urine Nitrite NEGATIVE, Urine Bilirubin NEGATIVE, Urine Urobilinogen 2.0H, Urine Leukocyte Esterase NEGATIVE, Urine WBC (Auto) 3, Urine RBC (Auto) 2, Urine Hyaline Casts (Auto) 0, Urine Bacteria (Auto) NEGATIVE, Urine Squamous Epithelial Cells 0, Urine Mucus (Auto) SMALL, Urine Sperm (Auto) CBC/BMP Laboratory Tests 08/01/20 14:25 Microbiology Microbiology 4/6/21 Blood Culture, Received Pending 08/01/20 Blood Culture, Received Pending Assessment/Plan Patient is 54 years old male with past history of rectal metastatic cancer presented hospital with right leg weakness. Patient stated that for past 10 days he has been having progressively worse weakness of right leg and now he is able to walk only with her walker. Also he stated he has intermittent fever for past week. Patient denied any chills diarrhea or dysuria. Of note patient was diagnosed with rectal adenocarcinoma on 08/24/2018 Rectal resection 10/07/2018 for a pT2N2a moderately differentiated adenocarcinoma with invasion into muscularis propria. 08/24 lymph nodes positive. FOLFOX chemotherapy 01/11/2019 to 06/14/2019. He declined radiation therapy. Liver biopsy 02/22/2020 showing metastatic adenocarcinoma compatible with metastatic colorectal adenocarcinoma. CT chest, abdomen and pelvis 04/25/2020 showed disease progression with appearance of new pulmonary nodules and increase in hepatic metastases. On second line Cetuximab/encorafenib for metastatic rectal cancer. Cetuximab started 05/22/2020. Encorafenib started 05/31/2020. Currently on Cetuximab/encorafenib. In ER patient was found to have of 27.3, fever of 101, CT showed Large ill-defined presacral soft tissue mass to the right of midline, increased since prior exam. There is invasion and destruction of the right sacrum. There is an expansile metastatic lesion in the right inferior pubic ramus. There is extensive metastatic involvement and lytic destruction of the right ischium, predominantly involving the posterior right acetabulum. Problems (1) Rectal cancer metastatic to bone Status: Chronic Problem Text: Patient has stage IV rectal adenocarcinoma with metastasis to the liver and bones Prognosis poor Palliative care on board Oncologist Dr. Jimenes recommended to start dexamethasone 4 mg by mouth twice a day (2) Right leg weakness Status: Acute Problem Text: Secondary to metastasis Will do MRI of the lumbar spine to rule out bone marrow compression Appreciate/agree with interventional onc consult Pain management (3) SIRS (systemic inflammatory response syndrome) Status: Acute Problem Text: Patient developed fever or 101 and leukocytosis of 27 Patient immunocompromised due to chemotherapy Chest x-ray negative for acute pulmonary diseases Zosyn IV, MRSA screen procalcitonin IV fluid Blood culture Plan / VTE VTE Prophylaxis Ordered?: Yes NAJMA ASENCIO DO Aug 01, 2020 19:16
[2020-08-01] MEDS: NS 1,000 ML IV SCH (19:44)
[2020-08-01] MEDS: DULoxetine 30 MG CAP (CYMBALTA) PO SCH (19:56)
[2020-08-01] MEDS: MORPHINE 30 MG SA TAB PO SCH (19:57)
[2020-08-01] MEDS: GABAPENTIN 300 MG CAP PO SCH (20:00)
[2020-08-01] MEDS: HYDROCORTISONE 2.5% 20GM OINTMENT TOP SCH (20:05)
[2020-08-01] MEDS ORDERED: PROHANCE 279.3MG/ML 15ML VIAL As Ordered ONE (22:20)
[2020-08-01 22:49] VITALS: BP 137/93
[2020-08-01] MEDS ORDERED: oxyCODONE 5MG TAB As Ordered ONE (23:52)
[2020-08-01] MEDS ORDERED: ZOSYN 3.375GM VIAL (J2543) As Ordered ONE (23:53)
[2020-08-01] MEDS: oxyCODONE 5MG TAB PO PRN (23:54)
[2020-08-02] MEDS: PIPERACILLIN/TAZOBACTAM SOD 3.375 GM in D5W MINI-BAG PLUS 50 ML IV SCH ×3 (03:00→19:06)
[2020-08-02 05:56] LABS: HEMATOCRIT 38.6 % (42.0-52.0); HEMOGLOBIN 11.2 g/dl (13.5-17.5); MEAN CORPUSCULAR HEMOGLOBIN 21.7 pg (27.0-33.0); MEAN CORPUSCULAR VOLUME 74.7 fl (80.0-96.0); PLATELET COUNT, AUTOMATED 215 10^3/uL (150-450); RED BLOOD COUNT 5.17 10^6/uL (4.30-6.10); WHITE BLOOD COUNT 22.1 10^3/uL (4.0-10.0)
[2020-08-02 06:00] VITALS: BP 132/90
[2020-08-02 06:21] LABS: ALBUMIN 2.1 GM/DL (3.2-5.2); ALT/SGPT 15 U/L (12-78); BILIRUBIN,TOTAL 0.7 MG/DL (0.2-1.0); BLOOD UREA NITROGEN 12 MG/DL (7-18); CALCIUM LEVEL 9.6 MG/DL (8.5-10.1); CARBON DIOXIDE LEVEL 27 MEQ/L (21-32); CHLORIDE LEVEL 106 MEQ/L (98-107); CREATININE FOR GFR 0.53 MG/DL (0.70-1.30); GLOMERULAR FILTRATION RATE > 60.0 (>56); GLUCOSE, FASTING 133 MG/DL (70-100); MAGNESIUM LEVEL 2.1 MG/DL (1.8-2.4); POTASSIUM SERUM 3.8 MEQ/L (3.5-5.1); SODIUM LEVEL 138 MEQ/L (136-145); TOTAL PROTEIN 6.6 GM/DL (6.4-8.2)
--- NOTE | 2020-08-02 08:17 | REP ---
INDICATION: bone marrow compression with mets. COMPARISON: CT abdomen and pelvis 08/01/2020. TECHNIQUE: Sagittal T1, T2, stir images of the lumbar spine obtained. Axial T1, T2 and T1 post gadolinium images obtained. FINDINGS: On the sagittal T2 weighted images, there is [id number] multilevel degenerative disc disease with loss of disc height and disc desiccation seen diffusely throughout the lumbar spine, slightly more progressed at the L4-5 and L5-S1 levels. Vertebral heights are overall preserved. No malalignments. Bone marrow signal appears normal throughout the lumbar spine. On the sagittal T2 weighted images, conus ends normally at L1 level. No significant canal stenosis noted. On the review of axial images, At L1-2 no significant canal or foraminal narrowing. At L2-3 and L3-4 minor disc bulges without significant canal or foraminal narrowing. At L4-5 disc bulge and disc desiccation with vgwv-[id number]-sztuoatg canal narrowing and [id number] bilateral foraminal narrowing. At L5-S1 minimal listhesis and disc bulging with loss of disc height with mild canal narrowing and moderate bilateral foraminal narrowing. On the STIR images, no definite stir signal abnormality to suggest soft tissue or ligamentous injury. Soft tissues without definite evidence of metastatic disease. On the postcontrast imaging, postcontrast axial images mildly motion degraded. Given this limitation, no definite abnormal enhancement. IMPRESSION: 1. No evidence of metastatic disease to the lumbar spine. The metastatic disease to the sacrum that is evident on the CT abdomen pelvis 08/01/2020 is not clearly identified on the MRI of the lumbar spine. 2. Degenerative disc disease slightly more progressed at L4-5 and L5-S1. No limiting canal or foraminal stenosis. No disc herniation identified. 3. Moderate foraminal narrowing at L5-S1 secondary to minimal listhesis and disc bulging with loss of disc height. 4. Pars defects at L5 are better visualized on the CT abdomen pelvis of 08/01/2020. <Electronically signed by Elijah Cowan > 08/02/20 [id number]
[2020-08-02] MEDS: NS 1,000 ML IV SCH ×3 (08:46→22:42)
[2020-08-02] MEDS: HYDROCORTISONE 2.5% 20GM OINTMENT TOP SCH ×2 (09:00→21:00)
[2020-08-02] MEDS ORDERED: fentaNYL 75 MCG/HR PATCH TOP SCH (09:00)
--- NOTE | 2020-08-02 09:16 | RADENCPD ---
Date/Time of Encounter Date of Encounter: Aug 02, 2020 Time of Encounter: 09:05 Encounter Met with Josh at bedside today at the request of Dr. Landaverde. Josh has been admitted with refractory pelvic pain and right leg weakness. He has a very large mass emanating from the rectum and destroying the sacrum, right acetabulum and right ischium. He had previously declined RT at the time of initial consultation with my predecessor Dr. Keller in April 2019, as well as upon re-referral to me for palliative RT to the rectal mass in February 2020. On exam Josh is unable to lift the right leg against gravity. He has significant pain with passive ROM. He reports no pain on the left and he has preserved strength in the left leg. I recommended to him that we proceed with urgent palliative RT to the pelvic ma ss with the intent of pain relief. There may also be a secondary benefit of improving strength in the right leg, if mass effect from the tumor is relieved, however I do not think this is as likely as pain control. I would give 25 Gy in 5 fractions (aka short-course RT), which is an effective regimen for palliating locally advanced rectal tumors (Janeen et al IJROBP 2016). As he has a diverting ostomy, I do not anticipate any GI side effects. He agreed to proceed. Simulation will occur this morning and treatment will begin tomorrow (08/03/20). I agree with tyleradron as suggested by Dr. Last. I defer [facility] discussion to Dr. Last as she knows Josh much better than I do. SANTANA LAROSE MD Aug 02, 2020 09:16
[2020-08-02] MEDS: ENOXAPARIN 40MG/0.4ML SYRINGE (J1650 PER 10MG) SC SCH (09:50)
[2020-08-02] MEDS: MORPHINE 30 MG SA TAB PO SCH ×2 (09:50→19:06)
[2020-08-02] MEDS: GABAPENTIN 300 MG CAP PO SCH ×3 (09:51→21:33)
[2020-08-02] MEDS: DULoxetine 30 MG CAP (CYMBALTA) PO SCH ×2 (09:51→21:33)
[2020-08-02] MEDS: TAMSULOSIN 0.4 MG CAP PO SCH (09:51)
[2020-08-02 14:00] VITALS: BP 137/89
--- NOTE | 2020-08-02 15:42 | IPNPDOC ---
Text Note Date of Service The patient was seen on 08/02/20. NOTE Subjective: No any acute events overnight. Patient stated that he feels better today. His right leg mobility slightly improved Objective: GENERAL APPEARANCE: NAD HEENT: no scleral icterus, no JVD, EOMI CARDIOVASCULAR: S1S2 LUNGS: CTA ABDOMEN: soft & not tender w palpitation, colostomy in place MUSCULOSKELETAL: no cyanosis, no swelling INTEGUMENT: no generalized pallor NEUROLOGICAL: cranial nerve function from 2-12 intact intact, follows commands, speech not dysarthric, right lower extremity strength 2/5 Assessment/Plan Patient is 54 years old male with past history of rectal metastatic cancer presented hospital with right leg weakness. Patient stated that for past 10 days he has been having progressively worse weakness of right leg and now he is able to walk only with her walker. Also he stated he has intermittent fever for past week. Patient denied any chills diarrhea or dysuria. Of note patient was diagnosed with rectal adenocarcinoma on 08/24/2018 Rectal resection 10/07/2018 for a pT2N2a moderately differentiated adenocarcinoma with invasion into muscularis propria. 08/24 lymph nodes positive. FOLFOX chemotherapy 01/11/2019 to 06/14/2019. He declined radiation therapy. Liver biopsy 02/22/2020 showing metastatic adenocarcinoma compatible with metastatic colorectal adenocarcinoma. CT chest, abdomen and pelvis 04/25/2020 showed disease prog ression with appearance of new pulmonary nodules and increase in hepatic metastases. On second line Cetuximab/encorafenib for metastatic rectal cancer. Cetuximab started 05/22/2020. Encorafenib started 05/31/2020. Currently on Cetuximab/encorafenib. In ER patient was found to have of 27.3, fever of 101, CT showed Large ill-defined presacral soft tissue mass to the right of midline, increased since prior exam. There is invasion and destruction of the right sacrum. There is an expansile metastatic lesion in the right inferior pubic ramus. There is extensive metastatic involvement and lytic destruction of the right ischium, predominantly involving the posterior right acetabulum. 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 Jimenes recommended to start dexamethasone 4 mg by mouth twice a day Right leg weakness MRI of the lumbar spine negative for bone marrow compression Dr Budniak will start radiation therapy Pain management SIRS (systemic inflammatory response syndrome) Patient developed fever or 101 and leukocytosis of 27 on 08/01/20 Patient immunocompromised due to chemotherapy. Also leukocytosis and low-grade fever can be manifestation of advanced malignancy Chest x-ray negative for acute pulmonary diseases Zosyn IV, MRSA negative today procalcitonin 1.6 which indicates antibiotic therapy. Leukocytosis improved to 22.1, patient afebrile Continue IV fluid Blood culture pending VS,Kalyan, I+O VS, Jeremiee, I+O Laboratory Tests 08/02/20 05:30 Vital Signs Date Time Temp Pulse Resp B/P (MAP) Pulse Ox O2 Delivery O2 Flow Rate FiO2 08/02/20 14:00 98.3 100 16 137/89 (105) 98 Room Air I&O- Last 24 Hours up to 6 AM 08/02/20 06:00 Intake Total 1370 ml Output Total 1400 ml Balance -30 ml NAJMA ASENCIO DO Aug 02, 2020 15:42
[2020-08-02] MEDS: oxyCODONE 5MG TAB PO PRN (15:43)
[2020-08-02 22:00] VITALS: BP 138/90
[2020-08-03] MEDS: PIPERACILLIN/TAZOBACTAM SOD 3.375 GM in D5W MINI-BAG PLUS 50 ML IV SCH ×3 (03:01→17:40)
[2020-08-03] MEDS: oxyCODONE 5MG TAB PO PRN ×3 (03:05→20:07)
[2020-08-03 06:00] VITALS: BP 134/81
[2020-08-03 06:23] LABS: BASO % 0.1 % (0.0-1.0); HEMATOCRIT 35.8 % (42.0-52.0); HEMOGLOBIN 10.3 g/dl (13.5-17.5); LYMPH # 1.4 10^3/uL (1.5-5.0); LYMPH % 7.2 % (24.0-44.0); MEAN CORPUSCULAR HEMOGLOBIN 21.5 pg (27.0-33.0); MEAN CORPUSCULAR HGB CONC 28.8 g/dl (32.0-36.5); MEAN CORPUSCULAR VOLUME 74.6 fl (80.0-96.0); MONO % 5.1 % (2.0-8.0); NEUTROPHILS # 16.3 10^3/uL (1.5-8.5); PLATELET COUNT, AUTOMATED 256 10^3/uL (150-450); WHITE BLOOD COUNT 18.8 10^3/uL (4.0-10.0)
[2020-08-03] MEDS: MORPHINE 30 MG SA TAB PO SCH ×2 (06:26→18:26)
[2020-08-03 06:45] LABS: ALBUMIN 2.1 GM/DL (3.2-5.2); ALT/SGPT 20 U/L (12-78); BILIRUBIN,TOTAL 0.4 MG/DL (0.2-1.0); BLOOD UREA NITROGEN 12 MG/DL (7-18); CALCIUM LEVEL 8.9 MG/DL (8.5-10.1); CARBON DIOXIDE LEVEL 25 MEQ/L (21-32); CHLORIDE LEVEL 110 MEQ/L (98-107); CREATININE FOR GFR 0.46 MG/DL (0.70-1.30); GLOMERULAR FILTRATION RATE > 60.0 (>56); GLUCOSE, FASTING 124 MG/DL (70-100); POTASSIUM SERUM 3.9 MEQ/L (3.5-5.1); SODIUM LEVEL 141 MEQ/L (136-145)
[2020-08-03] MEDS ORDERED: fentaNYL 75 MCG/HR PATCH TOP SCH (09:00)
[2020-08-03] MEDS ORDERED: FENTANYL REMOVAL DOCUMENTATION MISC XX SCH (09:00)
[2020-08-03] MEDS: HYDROCORTISONE 2.5% 20GM OINTMENT TOP SCH ×2 (10:35→20:09)
[2020-08-03] MEDS: TAMSULOSIN 0.4 MG CAP PO SCH (10:36)
[2020-08-03] MEDS: ENOXAPARIN 40MG/0.4ML SYRINGE (J1650 PER 10MG) SC SCH (10:36)
[2020-08-03] MEDS: GABAPENTIN 300 MG CAP PO SCH ×3 (10:36→20:07)
[2020-08-03] MEDS: DULoxetine 30 MG CAP (CYMBALTA) PO SCH ×2 (10:36→20:06)
[2020-08-03] MEDS: NS 1,000 ML IV SCH (10:39)
[2020-08-03 14:00] VITALS: BP 138/83
--- NOTE | 2020-08-03 16:18 | IPNPDOC ---
Text Note Date of Service The patient was seen on 08/03/20. NOTE Subjective: No any acute events overnight. Patient denied fever, chills, nausea, vomiting, diarrhea or dysuria Objective: GENERAL APPEARANCE: NAD HEENT: no scleral icterus, no JVD, EOMI CARDIOVASCULAR: S1S2 LUNGS: CTA ABDOMEN: soft & not tender w palpitation, colostomy in place MUSCULOSKELETAL: no cyanosis, no swelling INTEGUMENT: no generalized pallor NEUROLOGICAL: cranial nerve function from 2-12 intact intact, follows commands, speech not dysarthric, right lower extremity strength 2/5 Assessment/Plan Patient is 54 years old male with past history of rectal metastatic cancer presented hospital with right leg weakness. Patient stated that for past 10 days he has been having progressively worse weakness of right leg and now he is able to walk only with her walker. Also he stated he has intermittent fever for past week. Patient denied any chills diarrhea or dysuria. Of note patient was diagnosed with rectal adenocarcinoma on 08/24/2018 Rectal resection 10/07/2018 for a pT2N2a moderately differentiated adenocarcinoma with invasion into muscularis propria. 08/24 lymph nodes positive. FOLFOX chemotherapy 01/11/2019 to 06/14/2019. He declined radiation therapy. Liver biopsy 02/22/2020 showing metastatic adenocarcinoma compatible with metastatic colorectal adenocarcinoma. CT chest, abdomen and pelvis 04/25/2020 showed disease progression with appearance of new pulmonary nodules and increase in hepatic metastases. On second line Cetuximab/encorafenib for metastatic rectal cancer. Cetuximab started 05/22/2020. Encorafenib started 05/31/2020. Currently on Cetuximab/encorafenib. In ER patient was found to have of 27.3, fever of 101, CT showed Large ill-defined presacral soft tissue mass to the right of midline, increased since prior exam. There is invasion and destruction of the right sacrum. There is an expansile metastatic lesion in the right inferior pubic ramus. There is extensive metastatic involvement and lytic destruction of the right ischium, predominantly involving the posterior right acetabulum. 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 Last recommended to start dexamethasone 4 mg by mouth twice a day Right leg weakness MRI of the lumbar spine negative for bone marrow compression Dr Dumont will start radiation therapy today Pain management 1. The beneficiary has a medical condition which requires positioning of the bodily in ways not feasible with an ordinary bed. Elevation of the head/upper body less than 30 degrees, does not usually require the use of a hospital bed, or 2. The beneficiary requires positioning of the body in ways not feasible within normal urinary bed in order to alleviate pain, or 3. Beneficiary requires the head of bed to be elevated more than 30 degrees and most of the time due to congestive heart failure, chronic pulmonary disease, or problems with aspiration, or 4. The beneficiary requires traction equipment, which can only be attached to a hospital bed. AND The beneficiary requires frequent changes in body position and/or has any immedi ate need for a change in body position SIRS (systemic inflammatory response syndrome) Patient developed fever or 101 and leukocytosis of 27 on 08/01/20 Patient immunocompromised due to chemotherapy. Also leukocytosis and low-grade fever can be manifestation of advanced malignancy Chest x-ray negative for acute pulmonary diseases Continue Zosyn IV, MRSA negative On 08/02/20 procalcitonin 1.6 which indicates antibiotic therapy. Leukocytosis improved to 18.8, patient afebrile Blood culture negative VS,Fishbone, I+O VS, Fishbone, I+O Laboratory Tests 08/03/20 05:54 Vital Signs Date Time Temp Pulse Resp B/P (MAP) Pulse Ox O2 Delivery O2 Flow Rate FiO2 08/03/20 14:03 18 08/03/20 14:00 97.5 62 138/83 (101) 95 Room Air I&O- Last 24 Hours up to 6 AM 08/03/20 06:00 Intake Total 2810 ml Output Total 1575 ml Balance 1235 ml NAJMA ASENCIO DO Aug 03, 2020 16:18
[2020-08-03] MEDS ORDERED: MIRALAX *UNIT DOSE* 17GM PACKET PO PRN (16:55)
[2020-08-03 22:00] VITALS: BP 143/85
[2020-08-04] MEDS: PIPERACILLIN/TAZOBACTAM SOD 3.375 GM in D5W MINI-BAG PLUS 50 ML IV SCH ×2 (02:46→12:25)
[2020-08-04 06:00] VITALS: BP 155/90
[2020-08-04 06:12] LABS: BASO % 0.1 % (0.0-1.0); HEMOGLOBIN 10.7 g/dl (13.5-17.5); LYMPH # 1.5 10^3/uL (1.5-5.0); LYMPH % 8.1 % (24.0-44.0); MEAN CORPUSCULAR HEMOGLOBIN 21.4 pg (27.0-33.0); MEAN CORPUSCULAR HGB CONC 28.9 g/dl (32.0-36.5); MONO % 5.5 % (2.0-8.0); NEUTROPHILS # 16.1 10^3/uL (1.5-8.5); NEUTROPHILS % 85.5 % (36.0-66.0); PLATELET COUNT, AUTOMATED 265 10^3/uL (150-450); WHITE BLOOD COUNT 18.9 10^3/uL (4.0-10.0)
[2020-08-04 06:28] LABS: ALBUMIN 2.2 GM/DL (3.2-5.2); ALT/SGPT 31 U/L (12-78); BILIRUBIN,TOTAL 0.5 MG/DL (0.2-1.0); BLOOD UREA NITROGEN 13 MG/DL (7-18); CALCIUM LEVEL 9.1 MG/DL (8.5-10.1); CARBON DIOXIDE LEVEL 25 MEQ/L (21-32); CHLORIDE LEVEL 109 MEQ/L (98-107); CREATININE FOR GFR 0.46 MG/DL (0.70-1.30); GLOMERULAR FILTRATION RATE > 60.0 (>56); GLUCOSE, FASTING 99 MG/DL (70-100); MAGNESIUM LEVEL 2.2 MG/DL (1.8-2.4); POTASSIUM SERUM 3.9 MEQ/L (3.5-5.1); SODIUM LEVEL 139 MEQ/L (136-145); TOTAL PROTEIN 6.5 GM/DL (6.4-8.2)
[2020-08-04] MEDS: GABAPENTIN 300 MG CAP PO SCH (08:26)
[2020-08-04] MEDS: MORPHINE 30 MG SA TAB PO SCH (08:26)
[2020-08-04] MEDS: DULoxetine 30 MG CAP (CYMBALTA) PO SCH (08:26)
[2020-08-04] MEDS: ENOXAPARIN 40MG/0.4ML SYRINGE (J1650 PER 10MG) SC SCH (08:26)
[2020-08-04] MEDS: TAMSULOSIN 0.4 MG CAP PO SCH (08:26)
[2020-08-04] MEDS: HYDROCORTISONE 2.5% 20GM OINTMENT TOP SCH (08:27)
[2020-08-04] MEDS ORDERED: BISACODYL 5 MG TAB PO SCH (09:00)
[2020-08-04] MEDS ORDERED: DOXY-350 PO (10:51)
[2020-08-04] MEDS ORDERED: DEXA4TA PO (10:51)
[2020-08-04] MEDS ORDERED: BISAC5TA PO (10:51)
[2020-08-04] MEDS ORDERED: SODIUM CHLORIDE 0.9% INJ 10 ML SYR IV PRN (13:35)
--- NOTE | 2020-08-04 20:31 | DS.PDOC ---
Discharge Summary General Date of Admission Aug 01, 2020 at 18:42 Date of Discharge 08/04/20 Discharge Summary PROCEDURES PERFORMED DURING STAY: [None]. 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 HISTORY OF PRESENT ILLNESS:Patient is 54 years old male with past history of rectal metastatic cancer presented hospital with right leg weakness. Patient stated that for past 10 days he has been having progressively worse weakness of right leg and now he is able to walk only with her walker. Also he stated he has intermittent fever for past week. Patient denied any chills diarrhea or dysuria. Of note patient was diagnosed with rectal adenocarcinoma on 08/24/2018 Rectal resection 10/07/2018 for a pT2N2a moderately differentiated adenocarcinoma with invasion into muscularis propria. 08/24 lymph nodes positive. FOLFOX chemotherapy 01/11/2019 to 06/14/2019. He declined radiation therapy. Liver biopsy 02/22/2020 showing metastatic adenocarcinoma compatible with metastatic colo rectal adenocarcinoma. CT chest, abdomen and pelvis 04/25/2020 showed disease progression with appearance of new pulmonary nodules and increase in hepatic metastases. On second line Cetuximab/encorafenib for metastatic rectal cancer. Cetuximab started 05/22/2020. Encorafenib started 05/31/2020. Currently on Cetuximab/encorafenib. In ER patient was found to have of 27.3, fever of 101, CT showed Large ill-defined presacral soft tissue mass to the right of midline, increased since prior exam. There is invasion and destruction of the right sacrum. There is an expansile metastatic lesion in the right inferior pubic ramus. There is extensive metastatic involvement and lytic destruction of the right ischium, predominantly involving the posterior right acetabulum. 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 Last recommended to start dexamethasone 4 mg by mouth twice a day Right leg weakness MRI of the lumbar spine negative for bone marrow compression Dr Dumont started radiation therapy Pain management SIRS (systemic inflammatory response syndrome) Patient developed fever or 101 and leukocytosis of 27 on 08/01/20 Patient immunocompromised due to chemotherapy. Also leukocytosis and low-grade fever can be manifestation of advanced malignancy Chest x-ray negative for acute pulmonary diseases Continue Zosyn IV, MRSA negative On 08/02/20 procalcitonin 1.6 which indicates antibiotic therapy. Leukocytosis improved to 18.8, patient afebrile Blood culture negative DISCHARGE MEDICATIONS: Please see below. ALLERGIES: Please see below. PHYSICAL EXAMINATION ON DISCHARGE: VITAL SIGNS: Please see below. GENERAL APPEARANCE: NAD HEENT: no scleral icterus, no JVD, EOMI CARDIOVASCULAR: S1S2 LUNGS: CTA ABDOMEN: soft & not tender w palpitation, colostomy in place MUSCULOSKELETAL: no cyanosis, no swelling INTEGUMENT: no generalized pallor NEUROLOGICAL: cranial nerve function from 2-12 intact intact, follows commands, speech not dysarthric, right lower extremity strength 2/5 LABORATORY DATA: Please see below. IMAGING: See above PROGNOSIS: Guarded ACTIVITY: [As tolerated]. DIET: Regular DISPOSITION: 01 Home, Self-Care. DISCHARGE INSTRUCTIONS: Follow-up with radiation oncologist Friday ITEMS TO FOLLOWUP ON ON OUTPATIENT: Follow-up with oncologist in 3-5 days DISCHARGE CONDITION: [Stable]. TIME SPENT ON DISCHARGE: 40minutes. Vital Signs/I&Os Vital Signs Date Time Temp Pulse Resp B/P (MAP) Pulse Ox O2 Delivery O2 Flow Rate FiO2 08/04/20 08:26 18 08/04/20 06:00 97.0 84 155/90 (111) 96 08/03/20 14:00 Room Air I&O- Last 24 Hours up to 6 AM 08/04/20 05:59 Intake Total 1700 ml Output Total 1500 ml Balance 200 ml Laboratory Data Labs 24H Laboratory Tests 2 08/04/20 05:43: Immature Granulocyte % (Auto) 0.8, Neutrophils (%) (Auto) 85.5H, Lymphocytes (%) (Auto) 8.1L, Monocytes (%) (Auto) 5.5, Eosinophils (%) (Auto) 0.0, Basophils (%) (Auto) 0.1, Neutrophils # (Auto) 16.1H, Lymphocytes # (Auto) 1.5, Monocytes # (Auto) 1.0H, Eosinophils # (Auto) 0.0, Basophils # (Auto) 0.0, Nucleated Red Blood Cells % (auto) 0.0, Anion Gap 5L, Glomerular Filtration Rate > 60.0, Calcium Level 9.1, Magnesium Level 2.2, Total Bilirubin 0.5, Aspartate Amino Transf (AST/SGOT) 86H, Alanine Aminotransferase (ALT/SGPT) 31, Alkaline Phosphatase 538H, Total Protein 6.5, Albumin 2.2L, Albumin/Globulin Ratio 0.5 CBC/BMP Laboratory Tests 08/04/20 05:43 Microbiology Microbiology 08/01/20 Blood Culture - Preliminary, Resulted No Growth after 72 hours. All specime... 08/01/20 Blood Culture - Preliminary, Resulted No Growth after 72 hours. All specime... Discharge Medications Scheduled Bisacodyl (Bisacodyl) 5 Mg Tablet.dr, 5 MG PO DAILY Cetuximab (Erbitux) 200 Mg/100 Ml Vial, 300 MG IV QWEEK, (Reported) Dexamethasone (Dexamethasone) 4 Mg Tablet, 4 MG PO BID Doxycycline Monohydrate (Doxycycline) 100 Mg Capsule, 1 CAP PO BID Duloxetine HCl (Duloxetine HCl) 30 Mg Capsule.dr, 30 MG PO BID, (Reported) Encorafenib (Braftovi) 75 Mg Capsule, 300 MG PO DAILY Fentanyl (Fentanyl) 25 Mcg Patch.td72, 75 MCG TOP Q3D, (Reported) CURRENTLY APPLIED TO RIGHT ARM Gabapentin (Gabapentin) 300 Mg Capsule, 300 MG PO TID, (Reported) Hydrocortisone (Hydrocortisone 2.5%) 28.35 Gm Oint...g., 1 APLCT TOP BID apply to affected area(s) Morphine Sulfate (Morphine Sulfate ER) 30 Mg Tablet.er, 2 TAB PO BIDP Prochlorperazine Maleate (Prochlorperazine Maleate) 10 Mg Tablet, 10 MG PO Q6H for nausea Take 1 tablet po q 6 hours prn breakthru nausea despite Zofran Tamsulosin Hcl (Tamsulosin HCl) 0.4 Mg Capsule, 0.4 MG PO DAILY, (Reported) Scheduled PRN Oxycodone HCl (Oxycodone HCl) 10 Mg Tablet, 1 TAB PO Q4DP PRN for pain Take 10 mg po q 4 hours prn cancer pain Allergies Coded Allergies: Contrast Media (Verified Allergy, Intermediate, HIVES, 11/15/19) NAJMA ASENCIO DO Aug 04, 2020 20:31
[2020-08-05] MEDS ORDERED: SODIUM CHLORIDE 0.9% INJ 10 ML SYR IV SCH (09:00)
== END 2020-08-04 14:23 | disposition home health service (06) | DRG 240 ==
LOC: M ED 13:54 → M ED INP 18:42 → M MSPAV 22:45
PROVIDERS: ADMIT Internal Medicine; ATTEND Internal Medicine
DX: C20 Malignant neoplasm of rectum (principal); C79.51 Secondary malignant neoplasm of bone; C78.7 Secondary malignant neoplasm of liver and intrahepatic bile duct; Z79.899 Other long term (current) drug therapy; Z91.041 Radiographic dye allergy status; Z92.21 Personal history of antineoplastic chemotherapy

== ENCOUNTER 2020-08-09 11:06 | Outpatient (RCR) | payer OTHER ==
--- NOTE | 2020-08-02 17:54 | CR.PDOC ---
General Date of Consultation: Aug 02, 2020 Referring Provider: BROOKLYN HOSKINS MD, [facility] Primary Care Physician Anjelica Simms Attending Physician: NAJMA ASENCIO DO Consultation REASON FOR CONSULTATION/CHIEF COMPLAINT: 54 year old male with met astatic rectal cancer, was referred to [facility] by Brooklyn Hoskins MD his oncologist this morning. He was admitted to [facility] through the ED yesterday with complaints of inability to move right leg, pain in right hip and back. HISTORY OF PRESENT ILLNESS: Recta; mass biopsy 2019 showed adenocarcinoma. He has karen, skeletal and hepatic metastatic disease. He has undergonme chemotherapy with dissease progression. He was found to have large ill definied presacral soft tissue mass along with destruction of the right sacrum, metastatic involvement and destruction of right ischium. Prior to admission he was presscribed fentanyl 75 mcg hr patch, MSCOntin 30 mg tab 2 tab po q12hr and prn oxycodoen 10 mg tablerts. He was having a lot of pain and difficulty with weight bearing and movement at home. He stated he saw Dr. Miller in radiation oncology and will be getting palliative RT starting tomorrow. He has HCP ( his sister ). He does not have any other advanced directives ALLERGIES: Please see below. HOME MEDICATIONS: Please see below. PAST MEDICAL HISTORY: 1. metastatic rectal cancer 2. depression 3. BPH PAST SURGICAL HISTORY: 1. rectal resection with ostomy SOCIAL HISTORY: Marital status and/or living arrangements: lives with SO in [place] Tobacco use: no ETOH: no Illicit drug use: no REVIEW OF SYSTEMS: CONSTITUTIONAL: denies chills night sweats. +fevers HEENT: denies dysphagia, dental problems CARDIOVASCULAR: no CP pr palpitations RESPIRATORY: denies dyspnea or hemoptysis GENITOURINARY: BPH MUSCULOSKELETAL: Pain in lumbosacral spine, right hip, anterior right thigh GASTROINTESTINAL: rectal resection, denies n/v/c/d SKIN: no rashes NEUROLOGICAL: decreased strength right LE PSYCHIATRIC: denies SI/HI PHYSICAL EXAMINATION: VITAL SIGNS: Please see below. GENERAL APPEARANCE: well developed male in no distress. Alert, oriented, able to make needs known HEENT: mucosa moist RESPIRATORY: CTA CARDIOVASCULAR: RRR ABDOMEN: +BS, ostomy functioning EXTREMITIES: no edema, no clubbing or cyanosis NEUROLOGICAL: decreased strength right LE PSYCHIATRIC: euthymic LABORATORY DATA: Please see below. ASSESSMENT/PLAN: 1. metastatic rectal cancer with significatn pain. He is currently on 2 long acting opiates. Best practices are to use a single long acting agent. He would prefer to optimized fentanyl patch. Conversion from his current dose of morphine ( 120 mg total daily dose ) would be 26 mcg with a 20% cross intolerance reduction, so to optimize, morphine could either be reduced by 50 % when additional 25 mcg patch is started then discontinued the following day. He should be continued on oxycodone IR for breakthrough at a dose of 10-15 mg po q4hr prn. If he is requiring more than 3 to 4 doses of oxycodone daily then fentanyl patch should be increased to 150 mcg q 3 day. 2. Goals of care. Mr. Tejada and I had a 20 minute discussion about his current medical condition and whether or not he would want aggressive measures taken if his heart here to stop beating or if he needed ventilator support. He does not think he wants anything invasive and in fact, does not think continuing chemotherapy treatment makes any sense since he has had disease progression. I have reviewed and left a copy of 5 WIshes with him to review with his HCP and SO after he gives more consideration to how he wishes to proceed with his medical management. We discussed a MOLST form and the idea behind documenting what his wishes are in terms of medical treatment. He expressed to me he has a "bucket list" item in the near future: he wishes to travel to [place] later this month for one week to see [facility]. He plans to be gone about 7 days. I will arrange to see him in follow up in my clinic next Friday in conjunction with his appointment for RT with Dr. Miller to optimize his pain management and likely complete MOLST form ( unless this is done during this admission ). Allergies Coded Allergies: Contrast Media (Verified Allergy, Intermediate, HIVES, 11/15/19) Home Medications Scheduled Amoxicillin/Potassium Clav (Augmentin 500-125 Tablet) 1 Each Tablet, 1 TAB PO BID, #60 Cetuximab (Erbitux) 200 Mg/100 Ml Vial, 300 MG IV QWEEK, (Reported) Duloxetine HCl (Duloxetine HCl) 30 Mg Capsule.dr, 30 MG PO BID, (Reported) Encorafenib (Braftovi) 75 Mg Capsule, 300 MG PO DAILY, #120 Fentanyl (Fentanyl) 25 Mcg Patch.td72, 75 MCG TOP Q3D, (Reported) CURRENTLY APPLIED TO RIGHT ARM Gabapentin (Gabapentin) 300 Mg Capsule, 300 MG PO TID, (Reported) Hydrocortisone (Hydrocortisone 2.5%) 28.35 Gm Oint...g., 1 APLCT TOP BID for 5 Days, #30 apply to affected area(s) Morphine Sulfate (Morphine Sulfate ER) 30 Mg Tablet.er, 2 TAB PO BIDP for 30 Days, #60 Prochlorperazine Maleate (Prochlorperazine Maleate) 10 Mg Tablet, 10 MG PO Q6H for nausea for 15 Days, #60 Take 1 tablet po q 6 hours prn breakthru nausea despite Zofran Tamsulosin Hcl (Tamsulosin HCl) 0.4 Mg Capsule, 0.4 MG PO DAILY, (Reported) Scheduled PRN Oxycodone HCl (Oxycodone HCl) 10 Mg Tablet, 1 TAB PO Q4DP PRN for pain, #60 Take 10 mg po q 4 hours prn cancer pain Pema [employer] Aug 02, 2020 17:39
[~2020-08-09 11:06] MED LIST changes: +BISAC5TA PO; +DEXA4TA PO; +DOXY-350 PO; +DULO30CA47 PO; +ERBI200I IV; +GABA-282 PO; +TAMS1CAP17 PO
== END 2020-08-25 ==
LOC: M ONCR 11:06
PROVIDERS: ATTEND General Practice
DX: C20 Malignant neoplasm of rectum (principal)